=== PATIENT | male | born 1990 | race Caucasian/White ===

== ENCOUNTER 2023-10-15 06:55 | Emergency (ER) | payer BC ==
[2023-10-15] MEDS ORDERED: Lidocaine 1% PF 5 ML VIAL ONE (07:41)
[2023-10-15] MEDS ORDERED: Boostrix 0.5 ML (Tdap) VIAL (>/=7 yrs of age) ONE (07:41)
[2023-10-15] MEDS ORDERED: Bacitracin 1 PK ONE (09:44)
[2023-10-15] MEDS ORDERED: Ketorolac Tromethamine 30 MG/ML VIAL ONE (10:03)
== END 2023-10-15 10:14 | disposition home or self-care (01) ==
LOC: ERS 06:55
DX: S61.215A Laceration without foreign body of left ring finger without damage to nail, initial encounter (principal); F17.290 Nicotine dependence, other tobacco product, uncomplicated; W23.0XXA Caught, crushed, jammed, or pinched between moving objects, initial encounter
CPT/HCPCS: 12002; 90471; 90715; 96372; J1885